=== PATIENT | male | born 1995 | race Caucasian/White ===

== ENCOUNTER 2017-12-24 14:28 | Emergency (ER) | payer OTHER ==
[~2017-12-24] VITALS: Ht 180.3 cm; Wt 86.6 kg
[2017-12-24 14:29] VITALS: BP 154/99
[2017-12-24] MEDS ORDERED: LIDOCAINE-MPF 1%, 5ML ONE (14:44)
[2017-12-24] MEDS ORDERED: LIDOCAINE-MPF 1%, 5ML INFIL ONE (15:00)
[2017-12-24] MEDS ORDERED: BACITRACIN ZINC OINT 500U/GM, 0.9 GM ONE (15:36)
== END 2017-12-24 15:54 | disposition home or self-care (01) ==
LOC: ED 15:40
DX: S81.812A Laceration without foreign body, left lower leg, initial encounter (principal); W45.8XXA Other foreign body or object entering through skin, initial encounter; Y93.89 Activity, other specified; Y92.89 Other specified places as the place of occurrence of the external cause; Y99.9 Unspecified external cause status
CPT/HCPCS: 12032; 99284

== ENCOUNTER 2018-01-05 16:54 | Emergency (ER) | payer OTHER ==
[~2018-01-05] VITALS: Ht 177.8 cm; Wt 83.4 kg
[2018-01-05 16:56] VITALS: BP 122/79
== END 2018-01-05 17:10 | disposition home or self-care (01) ==
LOC: ED 17:04
DX: Z48.02 Encounter for removal of sutures (principal)
CPT/HCPCS: 99281